=== PATIENT | female | born 1995 | race Caucasian/White ===

== ENCOUNTER 2024-12-25 09:12 | Outpatient (CLI) | payer OTHER, SELFPAY ==
--- NOTE | ~2024-12-25 | MR_ITS ---
EXAMINATION: MR brain/brain stem wo con DATE: 12/25/2024 09:51 INDICATION: headache. TECHNIQUE: Magnetic resonance imaging (MRI) of the brain and brainstem was performed without intravenous contrast. COMPARISON: None. FINDINGS: There is no intracranial hemorrhage, acute infarction, or abnormal intracranial mass lesion. The ventricles are normal in size. The paranasal sinuses are clear. The orbits are normal. The mastoid air cells are normal. IMPRESSION: 1. Normal brain. Reviewed, dictated and finalized at location E. IMPRESSION: 1. Normal brain.
== END 2024-12-25 09:13 | disposition home or self-care (01) ==
LOC: MICIMG 09:13
PROVIDERS: PCP Obstetrics & Gynecology; Visit Provider Obstetrics & Gynecology
DX: O90.89 Other complications of the puerperium, not elsewhere classified (principal); R51.9 Headache, unspecified
CPT/HCPCS: 70551